=== PATIENT | female | born 1970 | race American Indian/Alaskan Native ===

== ENCOUNTER 2018-09-16 14:08 | Emergency (ER) | payer OTHER ==
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
[2018-09-16 14:47] VITALS: BP 146/80
[2018-09-16] MEDS ORDERED: IBUPROFEN PO ONE (15:01)
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
== END 2018-09-16 16:37 | disposition home or self-care (01) ==
LOC: ED 14:08
DX: S16.1XXA Strain of muscle, fascia and tendon at neck level, initial encounter (principal); S39.012A Strain of muscle, fascia and tendon of lower back, initial encounter; S46.912A Strain of unspecified muscle, fascia and tendon at shoulder and upper arm level, left arm, initial encounter; S09.90XA Unspecified injury of head, initial encounter; V49.59XA Passenger injured in collision with other motor vehicles in traffic accident, initial encounter; Y93.89 Activity, other specified; Y92.89 Other specified places as the place of occurrence of the external cause; Y99.8 Other external cause status
CPT/HCPCS: 72040